=== PATIENT | female | born 1945 | race Caucasian/White ===

== ENCOUNTER 2017-07-18 06:59 | Inpatient (IN) | payer MEDICARE ==
[~2017-07-18] VITALS: Ht 160 cm; Wt 60.4 kg
[~2017-07-18 06:59] MED LIST: ALEN1TAB48 PO; BIOT10TA PO; CALCTAB19 PO; CHOL10008 PO; MULTTAB67 PO
[2017-07-18] MEDS ORDERED: POVIDONE IODINE 5% (ANTISEPSIS KIT) 4 APPLICATIONS EACH NARE PRN (07:30)
[2017-07-18] MEDS ORDERED: METOPROLOL TARTRATE 25 MG TAB PO PRN (07:30)
[2017-07-18] MEDS ORDERED: SODIUM CHLORID 0.9% 500 ML IV PRN (07:30)
[2017-07-18] MEDS ORDERED: CHLORHEXIDINE GLUCONATE 2 % 1 PACK (2 CLOTHS) TOPICAL PRN (07:30)
[2017-07-18] MEDS ORDERED: INSULIN HUMAN REGULAR 1,000 UNITS/10 ML VIAL SQ PRN (07:30)
[2017-07-18] MEDS ORDERED: LACTATED RINGER'S 1000 ML IV PRN (07:30)
[2017-07-18] MEDS ORDERED: CLINDAMYCIN PHOS 600 MG/4 ML VIAL ONE ×2 (07:52→07:56)
[2017-07-18] MEDS ORDERED: SODIUM CHLORIDE 0.9% INJ 100 ML ONE (07:57)
[2017-07-18] MEDS ORDERED: CLINDAMYCIN 600 MG/NS PREMIX 50 ML IV SCH (08:00)
[2017-07-18] MEDS ORDERED: LACTATED RINGER'S 1000 ML INJ 1,000 ML IV SCH (08:00)
[2017-07-18] MEDS ORDERED: ACETAMINOPHEN 1000 MG/100 ML 100 ML IV ONE (08:57)
[2017-07-18] MEDS ORDERED: HYDROmorphone HCL PF 2 MG/ML VIAL ONE (08:57)
[2017-07-18] MEDS ORDERED: PROPOFOL 500 MG/50 ML INJ 100 ML ONE (08:57)
[2017-07-18] MEDS ORDERED: GELATIN 12 MM/7 MM FOAM ONE (09:12)
[2017-07-18] MEDS ORDERED: GELFOAM SIZE 100 ONE (09:12)
[2017-07-18] MEDS ORDERED: THROMBIN (TOPICAL) 5,000 UNIT VIAL ONE (09:12)
[2017-07-18] MEDS ORDERED: LIDOCAINE 1%/EPINEPHrine 1:100,000 SOLN 30 ML VIAL ONE (09:12)
[2017-07-18] MEDS ORDERED: GENTAMICIN SULFATE 80 MG/2 ML VIAL ONE (09:13)
[2017-07-18] MEDS ORDERED: PROPOFOL 200 MG/20 ML AMP IV ONE (12:00)
[2017-07-18] MEDS ORDERED: ROCURONIUM INJ 50 MG/5 ML SYRINGE IV PUSH ONE (12:00)
[2017-07-18] MEDS ORDERED: GLYCOPYRROLATE 1 MG/5 ML SYRINGE IV PUSH ONE (12:00)
[2017-07-18] MEDS ORDERED: ONDANSETRON HCL 4 MG/2 ML VIAL IV ONE (12:00)
[2017-07-18] MEDS ORDERED: LIDOCAINE HCL 1% PF 5 ML SYRINGE OTHER ONE (12:00)
[2017-07-18] MEDS ORDERED: LACTATED RINGER'S 1000 ML INJ 1,000 ML IV ONE (12:00)
[2017-07-18] MEDS ORDERED: ePHEDrine/NS 25 MG/5 ML SYRINGE IV ONE (12:00)
[2017-07-18] MEDS ORDERED: PHENYLEPH/NS 1000 MCG/10 ML SYR IV ONE (12:00)
[2017-07-18] MEDS ORDERED: SODIUM CHLORID 0.9% 500 ML INJ 500 ML IV ONE (12:00)
[2017-07-18] MEDS ORDERED: PHENYLEPHRINE HCL 10 MG/ML VIAL IV ONE (12:00)
[2017-07-18] MEDS ORDERED: DEXAMETHASONE SOD PHOS 4 MG/ML VIAL IV ONE (12:00)
--- NOTE | 2017-07-18 14:05 | EKG ---
Date Performed: 07/18/2017 Time Performed: 07:43:38 PTAGE: 71 years EKG: SINUS BRADYCARDIA LOW QRS VOLTAGE POSSIBLE ANTERIOR MYOCARDIAL INFARCTION , OF INDETERMINAT E AGE ABNORMAL ECG NO PREVIOUS TRACING DOCTOR: Qiana Hobson Interpretating Date/Time 07/18/2017 14:00:08
[2017-07-18] MEDS ORDERED: DO NOT ADM ANY ANTICOAGULANT DRUGS PRN (14:10)
[2017-07-18] MEDS ORDERED: MIDAZOLAM HCL 2 MG/2 ML VIAL ONE (14:13)
--- NOTE | 2017-07-18 14:14 | RADRPT ---
EXAM DATE/TIME: 07/18/2017 10:22 [place] COMPARISON: No previous studies available for comparison. INDICATIONS : Post-op C3-C4 laminoplasty. MEDICAL HISTORY : None. SURGICAL HISTORY : None. ENCOUNTER: Initial ACUITY: 1 day PAIN SCORE: Non-responsive. LOCATION: neck FINDINGS: A single lateral view of the upper and mid cervical spine recorded digitally after placement of hardw are in the posterior element of C3 and C4. There is mild anterolisthesis of C3 with respect to C4 an d C4 with respect to C5. CONCLUSION: Metallic hardware in the posterior elements of C3 and C4. Mild anterolisthesis of C3-5. Riky Billy MD on July 18, 2017 at 14:11 Board Certified Radiologist. This report was verified electronically.
[2017-07-18] MEDS: D5-1/2 NS + KCL 20 MEQ INJ 1,000 ML IV SCH (14:31)
[2017-07-18] MEDS ORDERED: HYDROmorphone HCL PF 1 MG/ML VIAL IV PUSH PRN (14:45)
[2017-07-18] MEDS ORDERED: PROMETHAZINE INJ 25 MG/ML VIAL IM PRN (14:45)
[2017-07-18] MEDS ORDERED: NALOXONE HCL 0.4 MG/ML AMP IV PUSH PRN (14:45)
[2017-07-18] MEDS ORDERED: MORPHINE SULFATE 2 MG/ML SYRINGE IV PUSH PRN (14:45)
[2017-07-18] MEDS ORDERED: ACETAMINOPHEN/HYDROcodone 325 MG/5 MG TAB PO PRN (14:45)
[2017-07-18 16:00] VITALS: BP 112/60; PULSE 75; RESP 18; TEMP 99.6; O2SAT 96
--- NOTE | 2017-07-18 18:07 | PD.OP ---
Operative Report Date of Surgery: July 18, 2017 Preoperative Diagnosis: (1) Cervical spondylosis with myelopathy (2) Cervical spinal stenosis (3) DDD (degenerative disc disease), cervical 1. Cervical spondylosis and degenerative disc disease 2. Cervical stenosis 3. C3-4, C4-5 anterior listhesis 4. Cervical myelopathy Postoperative Diagnosis: (1) Cervical spondylosis with myelopathy (2) Cervical spinal stenosis (3) DDD (degenerative disc disease), cervical 1. Cervical spondylosis and degenerative disc disease 2. Cervical stenosis 3. C3-4, C4-5 anterior listhesis 4. Cervical myelopathy Procedure: 1. C3, C4 laminoplasty, allograft bone and demineralized bone matrix, titanium plates and screws. 2. Partial C2 and C5 decompressive semi-laminectomy Anesthesia: General Surgeon: Andres Guerra Order Booker(s): Rossi Rodarte Operation and Findings: Indications: 71-year-old female with grade 1 C3-4, C4-5 anterolisthesis, severe canal stenosis with spinal cord compression, abnormal signal intensity within the cord. Findings: Moderate C3-4, C4-5 spondylosis. Procedure in detail: The patient was brought into the operating room and general endotracheal anesthesia induced without difficulty. Lines were established by anesthesia Knee high sequential compression devices were placed Appropriate time-out procedure was performed with all personnel present and in agreement The Chavez 3 point fixation device was placed. The patient was in a cervical collar for positioning Leads for intraoperative neuro monitoring were placed in a baseline study obtained The patient was turned into prone position on the 3080 table on the Roberto frame with the undersigned maintaining control of the head and neck. The head and neck were secured to the operating room table with the Chavez adapter with the neck slightly flexed with 3-4 fingerbreadths between the chin and chest. The neck position was checked with intraoperative C-arm and felt to be satisfactory. The cervical collar was removed. All extremities were appropriately padded. The back of the head and neck were shaved with clippers and sterilely prepped and draped. 1% Xylocaine with epinephrine was used for local infiltration over the incision site was made in the midline posterior neck and carried sharply down to the spinous processes of . The microscope was used as needed during the decompression and graft and plate placement portion of the procedure.. On the right side, the muscle attachments were mostly left in place to the spinous process in the midline supraspinous ligament was left intact, and the Brown elevator was used to expose the junction of the lamina and facet at the C2- C5 levels. On the right side, the TPS drill with the M8 jarred was used to incise a trough in the dorsal cortical bone at the C3, C4, superior C5 and inferior C2 levels. On the left side the posterior muscle attachments and fascia were incised with the Bovie and elevated away from the lamina and facet and spinous processes at the C3-C4 levels. The muscle and ligament attachments were left intact at the C2, C5 levels. On the left side. The TPS drill with the M8 jarred was used to drill a thin trough through both the dorsal and ventral cortical bone at the junction of the lamina and facet. A thin remaining shell of bone at the ventral lamina was removed with the 1 and 2 mm Kerrison rongeur. The lamina registered nurse maternity was then used to elevate the left lamina away from the facet , creating a partial fracture through the lamina on the right side. The proper size for the laminoplasty graft was determined with the trials in the 8 mm grafts were chosen and filled with demineralized bone matrix and attached to the 8 mm pre-bent titanium plate. Prior to placement of the laminoplasty graft and plate, the inferior ventral C2 and superior ventral C5 lamina were removed with the TPS drill and the Kerrison rongeur to further decompress the dura at these levels. The prepared grafts and plates were then placed between the elevated laminar edge and decorticated facet at the left C3,C3 and C4 levels, with the Synthes titanium laminoplasty plates pre- attached to the graft with 6 mm screws. The 4 mm and 6 mm screws were then used as needed to secure the laminoplasty plates to the edge of the lamina and through the facet and lateral mass at the left C3 and C4 levels. The entire construct was checked with intraoperative C-arm and also visualized under the microscope. The thin ligament dissector and blunt hook were used to carefully probe beneath the elevated lamina to ensure adequate decompression of the thecal sac. Care was taken to make sure that the edge of the lamina on the right side was not depressed into the spinal canal. The region was well irrigated with antibiotic irrigation. Bleeding was carefully controlled with bipolar forceps A 7 mm flat fluted drain was left at the operative site and brought out through an incision in the upper thoracic region and secured to the skin with nylon suture The closure was performed with 0 Vicryl interrupted for the deep and superficial fascia with 3-0 Vicryl interrupted subcutaneous closure and 4-0 Vicryl subcutaneous closure. A dressing of sterile Mastisol and Steri-Strips and a Primapore dressing was placed. The patient was placed back in a cervical collar and released from the Chavez adapter and turned back into supine position on the recovery room bed. The Chavez 3 point fixation device was then removed. The patient was taken to recovery room in stable condition All counts were correct at the end of the case. Estimated blood loss was 100cc No specimen was sent to pathology Neural monitoring remained stable during the procedure Andres Guerra MD July 18, 2017 18:07
[2017-07-18] MEDS ORDERED: PILL SPLITTER OTHER PRN (19:30)
[2017-07-18 20:00] VITALS: BP 122/71; PULSE 71; RESP 17; TEMP 98; O2SAT 99
[2017-07-18] MEDS: CHOLECALCIFEROL (VIT D3) 400 UNIT TAB PO SCH (21:00)
[2017-07-18] MEDS: DOCUSATE SODIUM 100 MG CAP PO SCH (21:00)
[2017-07-18] MEDS: CALCIUM CARBONATE 1.25 GM (CA 500 MG) TAB PO SCH (21:00)
[2017-07-18] MEDS ORDERED: NON-FORMULARY DRUG (Calcium Carbonate-Vitamin D (Calcium 600+D 200) 1 TAB) PO SCH (21:00)
[2017-07-19] VITALS: BP 115/63; PULSE 69; RESP 16; TEMP 97.7; O2SAT 96
[2017-07-19] MEDS: D5-1/2 NS + KCL 20 MEQ INJ 1,000 ML IV SCH ×3 (01:00→20:31)
[2017-07-19 04:35] VITALS: BP 113/56; PULSE 70; RESP 16; TEMP 98.1; O2SAT 99
[2017-07-19 06:51] LABS: AUTOMATED NEUTROPHIL # 10.3 TH/MM3 (1.8-7.7); BASOPHIL % 0.1 % (0.0-2.0); HEMATOCRIT 33.9 % (35.0-46.0); HEMOGLOBIN 11.9 GM/DL (11.6-15.3); LYMPH % 13.1 % (9.0-44.0); LYMPHOCYTE # 1.7 TH/MM3 (1.0-4.8); MEAN CELL VOLUME 94.4 FL (80.0-100.0); MEAN PLATELET VOLUME 9.2 FL (7.0-11.0); MONO % 8.2 % (0.0-8.0); MONOCYTE # 1.1 TH/MM3 (0-0.9); NEUT % 78.6 % (16.0-70.0); PLATELET COUNT 243 TH/MM3 (150-450); RED BLOOD COUNT 3.59 MIL/MM3 (4.00-5.30); RED CELL DISTRIBUTION WIDTH 12.5 % (11.6-17.2); WHITE BLOOD COUNT 13.1 TH/MM3 (4.0-11.0)
[2017-07-19 07:15] LABS: BICARBONATE 29.1 MEQ/L (21.0-32.0); CALCIUM 8.7 MG/DL (8.5-10.1); CREATININE 0.65 MG/DL (0.50-1.00)
[2017-07-19] MEDS: DOCUSATE SODIUM 100 MG CAP PO SCH ×2 (07:47→21:56)
[2017-07-19] MEDS: ACETAMINOPHEN/HYDROcodone 325 MG/10 MG TAB PO PRN ×4 (07:47→21:51)
[2017-07-19] MEDS: CHOLECALCIFEROL (VIT D3) 1000 UNIT TAB PO SCH (07:48)
[2017-07-19] MEDS: CHOLECALCIFEROL (VIT D3) 400 UNIT TAB PO SCH ×2 (07:48→21:55)
[2017-07-19] MEDS: MULTIVITAMIN TAB PO SCH (07:48)
[2017-07-19] MEDS: CALCIUM CARBONATE 1.25 GM (CA 500 MG) TAB PO SCH ×2 (07:48→21:56)
[2017-07-19 08:00] VITALS: BP 120/56; PULSE 67; RESP 16; TEMP 98.4; O2SAT 96
[2017-07-19] MEDS ORDERED: NON-FORMULARY DRUG (Multiple Vitamin 1 TAB) PO SCH (09:00)
--- NOTE | 2017-07-19 11:26 | HHI.NSPN ---
(Jabari Koehler) History Chief Complaint: Sore neck (Jabari Koehler) Interval History 07/18: The patient presented to [facility] to have a C3-4 laminoplasty with placement of titanium plates and screws followed by a partial C2 and C5 decompressive semi-laminectomy. Post-operatively the patient was admitted to a regular med/surg floor. 07/19: The patient had her eyes closed when seen this morning. She opened them to voice and was alert after that. She does have soreness to the neck as well as a sore throat. There are no sensorimotor deficits noted upon examination. She did say she had the dry heaves yesterday when she first got up but has not had any since. (Jabari Koehler) System Review Comments CONSTITUTIONAL: Negative INTEGUMENTARY: Negative HEENT: Sore throat. NECK: Sore neck. RESPIRATORY: Cough secondary to sore throat. CARDIOVASCULAR: Negative GASTROINTESTINAL: Dry heaves yesterday when she first got up but none since. GENITOURINARY: Negative MUSCULOSKELETAL: Negative NEUROLOGICAL: Negative (Jabari Koehler) Exam Results 07/17/17 07/17/17 07/18/17 07/18/17 07/19/17 07/19/17 06:00 18:00 06:00 18:00 06:00 18:00 Intake Total 2000 ml 480 ml Output Total 1400 ml 70 ml 700 ml Balance 600 ml -70 ml -220 ml Intake Oral 480 ml IV Total 2000 ml Output Urine Total 1300 ml 700 ml Drainage Total 70 ml Estimated Blood Loss 100 ml # Bowel Movements 0 Vital Signs Date Time Temp Pulse Resp B/P (MAP) Pulse Ox O2 Delivery O2 Flow Rate FiO2 07/19/17 08:52 17 07/19/17 08:00 98.4 67 16 120/56 (77) 96 07/19/17 04:35 98.1 70 16 113/56 (75) 99 07/19/17 00:00 97.7 69 16 115/63 (80) 96 07/18/17 20:00 98.0 71 17 122/71 (88) 99 07/18/17 16:00 99.6 75 18 112/60 (77) 96 07/18/17 15:45 97.6 71 20 110/61 (77) 100 Nasal Cannula 2 07/18/17 15:30 74 20 110/61 (77) 100 Nasal Cannula 2 07/18/17 15:15 71 20 106/60 (75) 100 Nasal Cannula 2 07/18/17 15:00 74 20 111/59 (76) 100 Nasal Cannula 2 07/18/17 14:45 69 20 110/61 (77) 100 Nasal Cannula 2 07/18/17 14:30 73 20 106/60 (75) 100 Nasal Cannula 2 07/18/17 14:15 68 20 111/65 (80) 100 Nasal Cannula 2 07/18/17 14:04 97.6 88 20 124/71 (88) 99 Nasal Cannula 2 07/18/17 07:44 98.3 62 14 138/80 (99) 98 (Jabari Koehler) Physical Examination GENERAL: Asleep but awakens to voice. Alert after that. Normal affect. Readily interacts. No apparent distress. SKIN: Intact dressing to posterior midline neck surgical incision. HEENT: Normocephalic, atraumatic. PERRLA 3 mm brisk, EOMI. MMM & pink, tongue midline to protrusion. NECK: Morongo J cervical collar in place. Posterior midline cervical surgical incision TTP, dressing intact. No JVD. Trachea midline. RESPIRATORY: CTAB w/o W/R/R, equal excursion, non-laboured, on RA. CARDIOVASCULAR: S1S2 w/RRR w/o M/G/R, no pedal edema. GASTROINTESTINAL: Abdomen soft, nontender, no bowel sounds appreciated. MUSCULOSKELETAL: PRASAD spontaneously & purposefully w/o difficulty. Extremities NTTP. NEUROLOGICAL: Asleep but awakens to voice. Alert after that. Oriented to person, place & time. Speech clear & appropriate. Follows commands w/o difficulty. CN II through XII appear grossly intact. PERRLA 3 mm brisk, EOMI. Tongue midline to protrusion. Sensation is intact to light touch to all extremities. Strength to all major flexion & extension muscle groups is 5/5 to all extremities, to include the wrist flexors & extensors and hand intrinsics & extrinsics. (Jabari Koehler) Lab, Micro, Other Results Recent Impressions Cervical Spine X-Ray 07/18/17 0000 Signed Impressions: Service Date/Time: July 10:22 - CONCLUSION: Metallic hardware in the posterior elements of C3 and C4. Mild anterolisthesis of C3-5. Riky Billy MD Laboratory Tests Test 07/19/17 05:04 White Blood Count 13.1 TH/MM3 Red Blood Count 3.59 MIL/MM3 Hemoglobin 11.9 GM/DL Hematocrit 33.9 % Mean Corpuscular Volume 94.4 FL Mean Corpuscular Hemoglobin 33.0 PG Mean Corpuscular Hemoglobin Concent 35.0 % Red Cell Distribution Width 12.5 % Platelet Count 243 TH/MM3 Mean Platelet Volume 9.2 FL Neutrophils (%) (Auto) 78.6 % Lymphocytes (%) (Auto) 13.1 % Monocytes (%) (Auto) 8.2 % Eosinophils (%) (Auto) 0.0 % Basophils (%) (Auto) 0.1 % Neutrophils # (Auto) 10.3 TH/MM3 Lymphocytes # (Auto) 1.7 TH/MM3 Monocytes # (Auto) 1.1 TH/MM3 Eosinophils # (Auto) 0.0 TH/MM3 Basophils # (Auto) 0.0 TH/MM3 CBC Comment DIFF FINAL Differential Comment Blood Urea Nitrogen 7 MG/DL Creatinine 0.65 MG/DL Random Glucose 95 MG/DL Calcium Level 8.7 MG/DL Sodium Level 142 MEQ/L Potassium Level 4.4 MEQ/L Chloride Level 105 MEQ/L Carbon Dioxide Level 29.1 MEQ/L Anion Gap 8 MEQ/L Estimat Glomerular Filtration Rate 90 ML/MIN (Jabari Koehler) Medical Decision Making Impression and Plan Impression: 1. Cervical spondylosis and degenerative disc disease 2. Cervical stenosis 3. C3-4, C4-5 anterior listhesis 4. Cervical myelopathy Patient is doing well post-operatively. There are no sensorimotor deficits noted. Posterior neck surgical incision pain. Sore throat from intubation. Afebrile since surgery. Jordon drain output is 70 mL since surgery as of shift change this morning. Reviewed labs for today. Leukocytosis mostly r/t inflammatory response following surgery. POD #1 () s/p: 1. C3, C4 laminoplasty, allograft bone and demineralized bone matrix, titanium plates and screws. 2. Partial C2 and C5 decompressive semi-laminectomy Plan: Morongo J cervical collar at all times. Vital signs q4h. Neuro checks. Monitor drain output. I&O q8h. Mobilise patient w/assistance. Physical Therapy eval & tx. Hold pharmacologic DVT prophylaxis. Mechanical DVT prophylaxis. Regular diet. Will d/c Arias catheter. Cepacol lozenge 1 sublingual q2h PRN sore throat. (Jabari Koehler) Attending Statement The exam, history, and the medical decision-making described in the above note were completed with the assistance of the mid-level provider. I reviewed and agree with the findings presented. I attest that I had a [id number] encounter with the patient on the same day, and personally performed and documented my assessment and findings in the medical record. Patient doing well postop day #1 Monitor drain output Ambulate 400 feet in physical therapy Stable neurologic exam Anticipate discharge home 07/20/2017 pending drain removal (Andres Guerra MD) Jabari Koehler July 19, 2017 11:26 Andres Guerra MD July 19, 2017 20:42
[2017-07-19] MEDS ORDERED: BENZOCAINE-MENTHOL (SUGAR FREE) 15 MG-3.6 MG LOZENGE BUCCAL PRN (11:45)
[2017-07-19 12:00] VITALS: BP 128/63; PULSE 65; RESP 16; TEMP 98.7; O2SAT 96
[2017-07-19 16:00] VITALS: BP 117/67; PULSE 73; RESP 16; TEMP 98; O2SAT 97
[2017-07-19 20:00] VITALS: BP 121/58; PULSE 71; RESP 20; TEMP 98.6; O2SAT 95
[2017-07-19] MEDS ORDERED: HYDR-3583 PO (20:32)
--- NOTE | 2017-07-19 20:33 | HHI.DCPOC ---
Discharge Care Plan Diagnosis: (1) DDD (degenerative disc disease), cervical (2) Cervical spondylosis with myelopathy (3) Cervical spinal stenosis Your Health Problems Are: Difficulty with ADL Incision/Drains Exercise Tolerance Loss of Movements Goals to Promote Your Health * To prevent worsening of your condition and complications * To maintain your health at the optimal level Directions to Meet Your Goals Take your medications as prescribed Follow your dietary instruction Follow activity as directed Keep your appointments as scheduled Take your immunizations and boosters as scheduled If your symptoms worsen call your PCP, if no PCP go to Urgent Care Center or Emergency Room Smoking is Dangerous to Your Health. Avoid second hand smoke Call the 24-hour hour crisis hotline for domestic abuse at Andres Guerra MD July 19, 2017 20:33
--- NOTE | 2017-07-19 20:35 | HHI.DS ---
Discharge Summary Admission Date July 18, 2017 at 06:59 Discharge Date: July 20, 2017 Admitting Diagnosis Cervical myelopathy Cervical spondylosis with stenosis (1) Cervical spondylosis with myelopathy Diagnosis: Principal ICD Code: M47.12 - Other spondylosis with myelopathy, cervical region (2) Cervical spinal stenosis Diagnosis: Secondary ICD Code: M48.02 - Spinal stenosis, cervical region (3) DDD (degenerative disc disease), cervical Diagnosis: Secondary ICD Code: M50.30 - Other cervical disc degeneration, unspecified cervical region Procedures 07/18/2017: C3-C4 laminoplasty, C2, C4 semi-laminectomy CBC/BMP: 07/19/17 0504 07/19/17 0504 Significant Findings Laboratory Tests Test 07/19/17 05:04 White Blood Count 13.1 TH/MM3 (4.0-11.0) Red Blood Count 3.59 MIL/MM3 (4.00-5.30) Hematocrit 33.9 % (35.0-46.0) Neutrophils (%) (Auto) 78.6 % (16.0-70.0) Monocytes (%) (Auto) 8.2 % (0.0-8.0) Neutrophils # (Auto) 10.3 TH/MM3 (1.8-7.7) Monocytes # (Auto) 1.1 TH/MM3 (0-0.9) Hospital Course Patient underwent the above-noted procedure performed without complication. 07/19/2017 tolerating diet, ambulating well with therapy, moderate drain output Plan discharge home 07/20/2017 pending drain removal, home health care Pt Condition on Discharge: Good Discharge Disposition: Disch w/ Home Health Serv Discharge Instructions DIET: Follow Instructions for: As Tolerated, No Restrictions ACTIVITIES You can perform: Weight Bearing As Jessy Activities to Avoid: Lifting/Bending, Strenuous Activity Follow up Referrals: Home Health Physical Therapy New Medications: Hydrocodone/Acetaminophen (Hydrocodone-Acetamin 10-325 mg) 10 Mg-325 Mg Tablet 1 TAB PO Q4H PRN for PAIN SCALE 6 TO 10, #60 TAB 0 Refills Continued Medications: Alendronate (Alendronate) 70 Mg Tab 70 MG PO Q7D for Osteporosis Treatment, #4 TAB 0 Refills Biotin (Biotin) 10 Mg Tab 10 MG PO DAILY for Nutritional Supplement, #1 BOTTLE 0 Refills Calcium Carbonate-Vitamin D (Calcium 600+D 200) 600-200 Mg-Unit Tab 1 TAB PO BID for Nutritional Supplement, TAB 0 Refills Cholecalciferol (Vitamin D3) 1,000 Unit Cap 1000 UNITS PO DAILY for Nutritional Supplement, #1 BOTTLE 0 Refills Multiple Vitamin (Multiple Vitamin) 1 Tab 1 TAB PO DAILY for Nutritional Supplement, TAB 0 Refills Andres Guerra MD July 19, 2017 20:35
[2017-07-20] VITALS: BP_SYST 111; BP_SYST 128; BP_DIAS 57; BP_DIAS 66; PULSE 66; PULSE 94; RESP 18; RESP 20; TEMP 97.6; TEMP 97.8; O2SAT 95; O2SAT 99
[2017-07-20 04:00] VITALS: BP 128/66; PULSE 60; RESP 18; TEMP 97.9; O2SAT 96
[2017-07-20] MEDS: ACETAMINOPHEN/HYDROcodone 325 MG/10 MG TAB PO PRN ×2 (06:28→10:27)
[2017-07-20] MEDS: D5-1/2 NS + KCL 20 MEQ INJ 1,000 ML IV SCH (06:31)
[2017-07-20 08:00] VITALS: BP 136/69; PULSE 73; RESP 16; TEMP 98.7; O2SAT 95
[2017-07-20] MEDS: CHOLECALCIFEROL (VIT D3) 1000 UNIT TAB PO SCH (10:05)
[2017-07-20] MEDS: DOCUSATE SODIUM 100 MG CAP PO SCH (10:05)
[2017-07-20] MEDS: CHOLECALCIFEROL (VIT D3) 400 UNIT TAB PO SCH (10:05)
[2017-07-20] MEDS: CALCIUM CARBONATE 1.25 GM (CA 500 MG) TAB PO SCH (10:05)
[2017-07-20] MEDS: MULTIVITAMIN TAB PO SCH (10:06)
--- NOTE | 2017-07-20 11:29 | HHI.FF ---
Face to Face Verification Diagnosis: (1) Cervical spinal stenosis (2) DDD (degenerative disc disease), cervical (3) Cervical spondylosis with myelopathy Physical Therapy Order: Evaluate and Treat, Improve ambulation, Strength and gait training Occupational Therapy Order: Evaluate and Treat, Improve ADL, Gross motor coordination, Fine motor coordination Home Health Nursing Order: Wound care and dressing changes Nursing assessment with vital signs I have seen patient Starla Dominguez on 07/20/17. My clinical findings support the need for the requested home health care services because: Deconditioned w/ increased weakness Limited ability to care for self High risk of falls I certify that my clinical findings support that this patient is homebound because: Post-op weakness Unsteady gait/balance Unable to use public transportation Beltran Gallardo July 20, 2017 11:29 am
--- NOTE | 2017-07-20 11:35 | HHI.NSPN ---
History Chief Complaint: Sore neck Interval History 07/20/17: Pt s/p C3/C4 laminoplasty, allograft bone and demineralized bone matrix , titanium plates and screws. Partial C2 and C5 decompressive semi- laminectomy. Pt awake and alert. Complains of incisional neck pain. No radiculopathy in UEs. Ambulating to bathroom. Wants to go home. has macular degeneration. Will get [facility] and Home PT/OT to evaluate pt. Review of Systems General: Negative for: fever, chills, insomnia Respiratory: Negative for: shortness of breath, cough, sputum Cardiovascular: Negative for: chest pain Gastrointestinal: Negative for: nausea, vomitting, diarrhea, constipation Exam Results Vital Signs Date Time Temp Pulse Resp B/P (MAP) Pulse Ox O2 Delivery O2 Flow Rate FiO2 07/20/17 08:00 98.7 73 16 136/69 (91) 95 07/18/17 15:45 Nasal Cannula 2 Intake and Output 07/20/17 07/20/17 07/21/17 08:00 16:00 00:00 Intake Total 360 ml Output Total 30 ml Balance 330 ml Physical Examination GENERAL: Normal affect. Readily interacts. No apparent distress. SKIN: Intact dressing to posterior midline neck surgical incision. HEENT: Normocephalic, atraumatic. PERRLA 3 mm brisk, EOMI. MMM & pink, tongue midline to protrusion. NECK: Grannis J cervical collar in place. Posterior midline cervical surgical incision TTP, dressing intact. No JVD. Trachea midline. RESPIRATORY: CTAB w/o W/R/R, equal excursion, non-laboured, on RA. CARDIOVASCULAR: S1S2 w/RRR w/o M/G/R, no pedal edema. GASTROINTESTINAL: Abdomen soft, nontender, no bowel sounds appreciated. MUSCULOSKELETAL: PRASAD spontaneously & purposefully w/o difficulty. Extremities NTTP. NEUROLOGICAL: Asleep but awakens to voice. Alert after that. Oriented to person, place & time. Speech clear & appropriate. Follows commands w/o difficulty. CN II through XII appear grossly intact. PERRLA 3 mm brisk, EOMI. Tongue midline to protrusion. Sensation is intact to light touch to all extremities. Strength to all major flexion & extension muscle groups is 5/5 to all extremities, to include the wrist flexors & extensors and hand intrinsics & extrinsics. Lab, Micro, Other Results Last Impressions Cervical Spine X-Ray 07/18/17 0000 Signed Impressions: Service Date/Time: July 10:22 - CONCLUSION: Metallic hardware in the posterior elements of C3 and C4. Mild anterolisthesis of C3-5. Riky Billy MD Medical Decision Making Impression and Plan A: 71 y/o FM s/p C3, C4 laminoplasty, allograft bone and demineralized bone matrix, titanium plates and screws. Partial C2 and C5 decompressive semi- laminectomy. P: D/C home Discussed restrictions. Follow up with Dr. Guerra. Beltran Gallardo July 20, 2017 11:35 am
[2017-07-20 12:00] VITALS: BP 153/71; PULSE 82; RESP 16; TEMP 99.5; O2SAT 95
== END 2017-07-20 13:39 | disposition home health service (06) | DRG 520 ==
LOC: HSDI 06:59 → N06B 16:06
PROVIDERS: ADMIT Neurological Surgery; ATTEND Neurological Surgery
PROC: 0PU30KZ Supplement Cervical Vertebra with Nonautologous Tissue Substitute, Open Approach (ICD-10-PCS; 2017-07-18)
PROC: 00NW0ZZ Release Cervical Spinal Cord, Open Approach (ICD-10-PCS; principal; 2017-07-18 09:22)
DX: M47.12 Other spondylosis with myelopathy, cervical region (principal); M50.30 Other cervical disc degeneration, unspecified cervical region; M48.02 Spinal stenosis, cervical region; M43.12 Spondylolisthesis, cervical region
CPT/HCPCS: 72020; 76000; 80048; 85025; 93005; 94150; C1713; J0131; J1100; J1170; J1580; J2250; J2370; J2405; J3010; J3480; J7040; J7120; L0150; L0172